=== PATIENT | female | born 1970 | race African-American/Black ===

== ENCOUNTER 2019-01-01 07:44 | Observation (INO) ==
[2019-01-01 07:49] VITALS: BMI 38.7
[2019-01-01] MEDS ORDERED: NS 1000 ML 1,000 ML IV ONE (08:29)
[2019-01-01] MEDS ORDERED: ZOFRAN INJ 4 MG VIAL IVP ONE (08:29)
[2019-01-01] MEDS ORDERED: PEPCID 20 MG IV PREMIX* 20 MG/50 ML BAG IV ONE (08:29)
--- NOTE | 2019-01-01 08:31 | ED.ABDFE ---
HPI Time Seen Time Seen by Provider: 01/01/19 08:05 PCP Primary Care Physician: JESSI EASON . FUNDING ANALYST HPI Comment HPI Comment: PATIENT IS 49YR OLD FEMALE WITH HISTORY OF CHRONIC CONSTIPATION IS IN ED WITH INCREASING CRAMPING AND SHARP ABDOMINAL PAIN TIMES ONE DAY. PAIN IS SHARP EPIGASTRIC RADIATING TO LOWER ABDOMEN ASSOCIATED WITH NAUSEA AND VOMITING. NO DYSURIA OR FEVER. Complaint Doctors Chief Complaint Comments: ABDOMINAL PAIN, NAUSEA AND VOMITING TIMES ONE DAY. Chief Complaint:: PT C/O EPIGASTRIC PAIN AND N/V ,,BR Self Treatment fo Chief Complaint: PT HAS AN APPT WITH BARRY SMALLS ON TUESDAY, BR Reviewed Nurses Notes Review: Yes Source History Provided: Patient Mode of arrival Mode of Arrival: Ambulatory Timing Onset of Chief Complaint: 12/31/18 Came on: Suddenly Duration Since Onset: Constant Duration: Hours Location Location: Diffuse Severity Severity: Severe Quality Quality: Cramping, Sharp and Generalized Modifying factors Worsening Factors: Exertion Improving Factors: Lying Still Associated signs and symptoms Associated Signs and Symptoms: Nausea and Vomiting Other history Other History: HISTORY CONSTIPATION. PMH PMH Past Medical History: Yes Past Medical History: Hypertension Past Surgical History: Yes Surgical History: Hysterectomy Family History History of Family Medical Conditions: Yes Family Medical History: Diabetes Mellitus Social History Does patient currently use any type of tobacco product: No Have you used tobacco products in the last 12 months: No Type of Tobacco Use: None Does any household member use tobacco: No Alcohol Use: None Do you use any recreational Drugs:: No Lives With: Family Lives Where: Home infectious screening In the last 2 months have you had wt loss of >10#?: NO Have you had fever, night sweats or hemotysis?: No Have you traveled outside the country in the last 6 months?: No Isolation: Standard ROS Review of Systems Constitutional: See HPI, Weakness and Fatigue; negative Fever Eyes: No Symptoms Reported and See HPI; negative Eye Pain, Tearing and Discharge ENTM: No Symptoms Reported and See HPI; negative Ear Pain, Nose Discharge, Nose Congestion and Throat Pain Respiratoy: No Symptoms Reported and See HPI; negative Productive Cough, Short of Breath and Wheezing Cardiovascular: No Symptoms Reported and See HPI; negative Chest Pain, Edema and Palpitations Gastrointestinal/Abdominal: See HPI, Abdominal Pain, Nausea and Vomiting Genitourinary: No Symptoms Reported; negative Dysuria, Frequency and Hematuria Neurological: See HPI and Weakness; negative Headache and Dizziness Musculoskeletal: No Symptoms Reported and See HPI; negative Back Pain and Muscle Pain Integumentary: No Symptoms Reported and See HPI; negative Change in Color and Dryness Hematologic/Lymphatic: No Symptoms Reported and See HPI; negative Easy Bruising, Swollen Glands and Lymphadenopathy Endocrine: No Symptoms Reported and See HPI; negative Increased Thirst, Increased Urine and Decreased Appetite Psychiatric: No Symptoms Reported and See HPI All Other Systems: Reviewed and Negative PE Vital Signs Vitals: Temperature 98.4 F Pulse Rate [Right Radial] 79 Pulse Rate 99 Respiratory Rate 20 Blood Pressure [Left Arm] 96/59 Blood Pressure [Right Arm] 109/64 Blood Pressure 162/82 O2 Sat by Pulse Oximetry 96 General Limitations: No Limitations General Appearance: Alert and In No Apparent Distress Head Head Exam: Normal Inspection, Atraumatic and Normocephalic Eyes Eye exam: Normal Appearance, PERRL and EOMI; negative Scleral Icterus and Conjunctival Injection ENT ENT Exam: Normal Exam, Normal Oropharynx, Normal External Ear Exam and TM's Normal Bilaterally Neck Neck Exam: Normal Inspection and Trachea Midline; negative Tenderness and Meningismus Chest Chest Inspection: Normal Inspection and Symmetric Chest Wall Rise; negative Tenderness Respiratory Respiratory Exam: Normal Lung Sounds Bilat; negative Accessory Muscle Use, Chest Wall Tenderness and Respiratory Distress Respiratory Exam: Bilateral: Clear to Auscultation Cardiovascular Cardiovascular Exam: Regular Rate, Normal Rhythm and Normal Heart Sounds; negative Systolic Murmur and Diastolic Murmur Abdominal Exam Abdominal Exam: Normal Inspection, Normal Bowel Sounds, Soft and Tenderness Abdominal Tenderness: Diffuse and Moderate Rectal Rectal Exam: Deferred Back Back Exam: Normal Inspection; negative Tenderness, Paraspinal Tenderness and Vertebral Tenderness Extremeties Extremities Exam: Normal Inspection, Tenderness and Normal Capillary Refill; negative Edema, Joint Swelling and Calf Tenderness External Exam: Female: Deferred : Speculum Exam (Female): Deferred : Bimanual Exam (female): Deferred Neurologic Neurological Exam: Alert, Oriented X3 and CN II-XII Intact; negative Motor Sensory Deficit Psychiatric Psychiatric Exam: Normal Affect and Normal Mood Skin Skin Exam: Dry MDM Differential Diagnosis Differential Diagnosis- Considerations may include:: Bowel Obstruction, Cholcystitis, Cholelethiasis, Constipation, Diverticular disease, Gastritus/PUD, Gastroenteritis, Inflammatory BD, Ischemic Bowel, Pancreatitis, Urinary tract infection and Urolithiasis COURSE Treatment Treatment: SEE ORDERS. Consultation Consultation Comments: SURGERY CONSULT TO DR. JAMISON. HE IS HERE IN ED TO SEE PATIENT. WILL HAVE MEDICINE ADMIT PATIENT, HE WILL TAKE PATIENT TO OR FOR EGD. DR. RINCON CAREER SERVICES DIRECTOR WILL ADMIT PATIENT. HAVE DISCUSS PATIENT WITH BOTH DRNewton Education/Counseling Education/Counseling: Patient Educated On: Diagnosis ROR Labs Reviewed Laboratory Results Reviewed?: Yes Result Diagrams: 01/03/19 04:36 01/03/19 04:36 Laboratory: WBC 4.6 X10^3/uL (3.6-10.0) 01/03/19 04:36 RBC 3.58 X10^6/uL (3.5-5.4) 01/03/19 04:36 Hgb 11.1 g/dL (12.0-16.0) L 01/03/19 04:36 Hct 32.5 % (36.0-47.0) L 01/03/19 04:36 MCV 90.9 fL (80.0-100.0) 01/03/19 04:36 MCH 31.1 pg (27.0-34.0) 01/03/19 04:36 MCHC 34.2 g/dL (33.0-35.0) 01/03/19 04:36 RDW 14.6 % (11.6-16.5) 01/03/19 04:36 Plt Count 274 X10^3/uL (150.0-450.0) 01/03/19 04:36 MPV 7.4 fL (7.4-11.0) 01/03/19 04:36 Neut % (Auto) 50.8 % (42.0-75.0) 01/03/19 04:36 Lymph % (Auto) 34.3 % (21.0-51.0) 01/03/19 04:36 [place] % (Auto) 10.5 % (0.0-13.0) 01/03/19 04:36 Eos % (Auto) 3.9 % (0.9-2.9) H 01/03/19 04:36 Baso % (Auto) 0.5 % (0.2-1.0) 01/03/19 04:36 Neut # (Auto) 2.3 x10^3/uL (2.2-4.8) 01/03/19 04:36 Lymph # (Auto) 1.6 X10^3/uL (1.3-2.9) 01/03/19 04:36 [place] # (Auto) 0.5 x10^3/uL (0.3-0.8) 01/03/19 04:36 Eos # (Auto) 0.2 x10^3/uL (0.0-0.2) 01/03/19 04:36 Baso # (Auto) 0.0 X10^3/uL (0.0-0.1) 01/03/19 04:36 Absolute Nucleated RBC 0.0 /100WBC 01/03/19 04:36 Sodium 143 mmol/L (136-145) 01/03/19 04:36 Corrected Sodium TNP 01/03/19 04:36 Potassium 3.6 mmol/L (3.5-5.1) 01/03/19 04:36 Chloride 107 mmol/L (98-107) 01/03/19 04:36 Carbon Dioxide 29.1 mmol/L (21-32) 01/03/19 04:36 BUN 13 mg/dL (7-18) 01/03/19 04:36 Creatinine 0.73 mg/dL (0.55-1.02) 01/03/19 04:36 Est GFR (MDRD) Af Amer > 60 (>60) 01/03/19 04:36 Est GFR (MDRD) Non-Af > 60 (>60) 01/03/19 04:36 Glucose 99 mg/dL (65-99) 01/03/19 04:36 Calcium 8.6 mg/dL (8.5-10.1) 01/03/19 04:36 Corrected Calcium 9.5 mg/dL (8.5-10.1) 01/03/19 04:36 Magnesium 2.0 mg/dL (1.7-2.9) 01/03/19 04:36 Total Bilirubin 0.20 mg/dL (0.2-1.0) 01/03/19 04:36 AST 21 Units/L (15-37) 01/03/19 04:36 ALT 13 Units/L (12-78) 01/03/19 04:36 Alkaline Phosphatase 67 Units/L (46-116) 01/03/19 04:36 Creatine Kinase 118 Units/L (26-192) 01/01/19 15:53 CK-MB (CK-2) 1.3 ng/mL (0-4.0) 01/01/19 15:53 CK/CKMB % Calc 1.1 % (<4) 01/01/19 15:53 Troponin I < 0.02 ng/mL (0-1.5) 01/01/19 15:53 Total Protein 6.8 g/dL (6.4-8.2) 01/03/19 04:36 Albumin 2.9 g/dL (3.4-5.0) L 01/03/19 04:36 Globulin 3.9 g/dL (2.5-4.5) 01/03/19 04:36 Albumin/Globulin Ratio 0.7 Ratio (1.1-2.1) L 01/03/19 04:36 Amylase 51 Units/L (25-115) 01/01/19 10:13 Lipase 68 Units/L (73-393) L 01/01/19 10:13 Specimen Type Clean catch urine 01/01/19 08:36 Urine Color Dark yellow (YELLOW) 01/01/19 08:36 Urine Appearance Hazy (CLEAR) 01/01/19 08:36 Urine pH 7.0 (5.0 - 8.0) 01/01/19 08:36 Ur Specific [place] 1.010 (1.000-1.030) 01/01/19 08:36 Urine Protein Negative (NEGATIVE) 01/01/19 08:36 Urine Glucose (UA) Negative (NEGATIVE) 01/01/19 08:36 Urine Ketones Negative (NEGATIVE) 01/01/19 08:36 Urine Occult Blood Negative (NEGATIVE) 01/01/19 08:36 Urine Nitrite Negative (NEGATIVE) 01/01/19 08:36 Urine Bilirubin Negative (NEGATIVE) 01/01/19 08:36 Urine Urobilinogen 2+ (NORMAL) 01/01/19 08:36 Ur Leukocyte Esterase 2+ (NEGATIVE) 01/01/19 08:36 Urine RBC None seen /HPF (NONE SEEN) 01/01/19 08:36 Urine WBC 3-5 /HPF (NONE SEEN) 01/01/19 08:36 Ur Squamous Epith Cells Moderate /HPF (NEGATIVE) 01/01/19 08:36 Urine Bacteria Trace /HPF (NEGATIVE) 01/01/19 08:36 Urine Mucus Few /HPF (NEGATIVE) 01/01/19 08:36 Ur Culture Indicated? No/not indicated 01/01/19 08:36 Tissue Pathology To follow 01/01/19 16:16 XRAY XRAY Interpreted by: Radiologist XRAY Findings: REPORT ON RECORD NOTED AND DISCUSS WITH PATIENT. Opioid Opioid Risk Tool Age (González box if 16-45): Yes Total: 1 Total Score Risk Category: Low Risk Copyright: Andrae GIBSON predicting aberrant behaviors Diagnosis Discharge Problem: Enteritis, IBD (inflammatory bowel disease) Abdominal pain Qualifiers: Abdominal location: epigastric Qualified Code(s): R10.13 - Epigastric pain Instructions Instructions: Constipation, Adult, [id number] Food Choices to Help Relieve Diarrhea, Adult Nausea and Vomiting, Adult, [id number] Abdominal Pain, Adult, [id number] Forms: Patient Portal
[2019-01-01 08:45] LABS: BILIRUBIN,URINE NEGATIVE (NEGATIVE); BLOOD/HEMOGLOBIN,URINE NEGATIVE (NEGATIVE); GLUCOSE, URINE NEGATIVE (NEGATIVE); KETONES,URINE NEGATIVE (NEGATIVE); LEUKOCYTE ESTERASE ,URINE 2+ (NEGATIVE); NITRITES,URINE NEGATIVE (NEGATIVE); PROTEIN,URINE NEGATIVE (NEGATIVE); UROBILINOGEN,URINE 2+ (NORMAL)
[2019-01-01 08:49] LABS: APPEARANCE,URINE HAZY (CLEAR); COLOR,URINE DARK YELLOW (YELLOW)
[2019-01-01 08:53] LABS: BACTERIA,URINE TRACE /HPF (NEGATIVE); MUCUS,URINE FEW /HPF (NEGATIVE); RBC,URINE NONE SEEN /HPF (NONE SEEN); SQUAMOUS EPITHELIAL CELL,UR MODERATE /HPF (NEGATIVE)
[2019-01-01] MEDS ORDERED: PHENERGAN INJ 25 MG IM ONE ×2 (08:56→09:07)
[2019-01-01] MEDS ORDERED: PEPCID 20 MG IV PREMIX* 20 MG/50 ML BAG ONE (10:13)
[2019-01-01] MEDS ORDERED: NS 1000 ML 1,000 ML ONE (10:13)
[2019-01-01 10:37] LABS: ALANINE AMINOTRANSFERASE 19 Units/L (12-78); ALBUMIN 3.7 g/dL (3.4-5.0); ALKALINE PHOSPHATASE 78 Units/L (46-116); AMYLASE 51 Units/L (25-115); ASPARTATE AMINO TRANSFERASE 30 Units/L (15-37); BLOOD UREA NITROGEN 18 mg/dL (7-18); CALCIUM 9.5 mg/dL (8.5-10.1); CARBON DIOXIDE 29.4 mmol/L (21-32); CHLORIDE 103 mmol/L (98-107); CREATININE 0.78 mg/dL (0.55-1.02); LIPASE 68 Units/L (73-393); SODIUM 141 mmol/L (136-145); TOTAL PROTEIN 8.4 g/dL (6.4-8.2); eGFR NON BLACK RACES > 60 (>60)
[2019-01-01 10:39] LABS: BASOPHILS # (AUTO) 0.1 X10^3/uL (0.0-0.1); BASOPHILS % (AUTO) 0.7 % (0.2-1.0); EOSINOPHILS % (AUTO) 0.2 % (0.9-2.9); HEMATOCRIT 41.2 % (36.0-47.0); HEMOGLOBIN 13.5 g/dL (12.0-16.0); LYMPHOCYTES # (AUTO) 1.6 X10^3/uL (1.3-2.9); LYMPHOCYTES % (AUTO) 16.3 % (21.0-51.0); MEAN CORPUSCULAR HEMOGLOBIN 29.7 pg (27.0-34.0); MEAN CORPUSCULAR HGB CONC 32.7 g/dL (33.0-35.0); MEAN CORPUSCULAR VOLUME 90.8 fL (80.0-100.0); MEAN PLATELET VOLUME 7.8 fL (7.4-11.0); MONOCYTES # (AUTO) 0.5 x10^3/uL (0.3-0.8); MONOCYTES % (AUTO) 4.8 % (0.0-13.0); NEUTROPHILS # (AUTO) 7.9 x10^3/uL (2.2-4.8); PLATELET COUNT 211 X10^3/uL (150.0-450.0); RED BLOOD COUNT 4.54 X10^6/uL (3.5-5.4); RED CELL DISTRIBUTION WIDTH 14.1 % (11.6-16.5); WHITE BLOOD COUNT 10.1 X10^3/uL (3.6-10.0)
[2019-01-01] MEDS ORDERED: MORPHINE SULFATE INJ 4 MG IVP ONE (10:41)
--- NOTE | 2019-01-01 12:58 | CT ---
HISTORY: Abdominal and epigastric pain Study: CT abdomen and pelvis with contrast Comparison: July 23, 2014 Technique: Multiple axial images of the abdomen and pelvis were obtained from the lung bases to the pubic symphysis with the administration of IV contrast. Findings: Subsegmental atelectasis and/or scarring are seen within the visualized lungs. Subcentimeter foci decreased attenuation within the liver are too small to accurately characterize. The spleen, adrenals, and left kidney are unremarkable in appearance. A subcentimeter low-attenuation lesion within the right kidney is too small to accurately characterize. No CT evidence of hydronephrosis is identified. A subcentimeter focus of decreased attenuation is again seen within the tail of the pancreas and does not appear to have significantly changed since prior exam. Images demonstrate moderate wall thickening with associated luminal narrowing involving a few loops of bowel within the central and left [place] abdomen and pelvis. Adjacent mesenteric fat stranding and a small amount of fluid are noted as well. Similar findings were demonstrated on prior exam performed on July 23, 2014. These findings are nonspecific but as previously stated may reflect infectious enteritis or inflammatory bowel disease however bowel ischemia cannot entirely be excluded. Recommend clinical correlation and surgical consultation for further evaluation. The urinary bladder is grossly unremarkable. IMPRESSION: Moderately thickened loops of bowel with adjacent inflammatory change and fluid as discussed above. Other findings as noted above. Reported By:
--- NOTE | 2019-01-01 15:41 | US ---
Right Upper Quadrant Sonogram Indication:epigastric pain Comparison: CT performed on same day Technique: Multiple miner scale and color flow Doppler images of the right upper quadrant were obtained. Findings: The liver is normal in echotexture and size. No focal intraparenchymal mass or intrahepatic biliary ductal dilatation can be observed. The gallbladder fails to demonstrate evidence for cholelithiasis or layering sludge.No pericholecystic fluid or gallbladder wall thickening can be observed. The common bile duct is unremarkable measuring 1 mm. The right kidney appears normal in size without focal parenchymal mass or nephrolithiasis. The right kidney measurers 8.1 cm. No hydronephrosis or perirenal fluid can be observed. The pancreatic head and body are unremarkable. There is a small amount perihepatic free fluid. IMPRESSION: 1. Aside for a small amount of perihepatic free fluid no sonographic abnormality within the right upper quadrant. Reported By:
[2019-01-01] MEDS ORDERED: MORPHINE SULFATE INJ 2 MG INJ IVP PRN (15:42)
[2019-01-01] MEDS ORDERED: ZOFRAN INJ 4 MG VIAL IVP PRN (15:42)
[2019-01-01] MEDS ORDERED: PEPCID 20 MG IV PREMIX* 20 MG/50 ML BAG IV PRN (15:42)
[2019-01-01] MEDS ORDERED: LR 1000 ML IV 1,000 ML ONE (16:00)
[2019-01-01 16:30] LABS: CKMB % 1.1 % (<4); CREATINE KINASE 118 Units/L (26-192); CREATINE KINASE MB 1.3 ng/mL (0-4.0); TROPONIN I < 0.02 ng/mL (0-1.5)
--- NOTE | 2019-01-01 16:31 | OR.GENERIC ---
Post-Op Note Generic - Post-Op Note Operative Report: EGD with Bx was done . finding : moderate gastritis involving the Antrum and fundus . small hiatal hernia with refflux esophagitis grade l and ll Bx 's were obtained . will keep on Protonix and schedule for biliary scan in Am .
[2019-01-01] MEDS: NS 1000 ML 1,000 ML IV SCH (17:10)
[2019-01-01] MEDS: D5 1/2 NS 1000 ML 1,000 ML IV SCH (17:11)
[2019-01-01] MEDS: FLAGYL IV PREMIX 500 MG BAG 500 MG/100 ML BAG IV SCH (20:37)
[2019-01-01] MEDS: ANUCORT-HC SUPP PR SCH (20:37)
[2019-01-01] MEDS: CIPRO IV 400 MG PREMIX* 400 MG/200 ML IV.SOLN. IV SCH (22:18)
[2019-01-02] MEDS: D5 1/2 NS 1000 ML 1,000 ML IV SCH ×5 (01:21→23:53)
[2019-01-02] MEDS: FLAGYL IV PREMIX 500 MG BAG 500 MG/100 ML BAG IV SCH ×4 (02:08→20:28)
[2019-01-02] MEDS: NS 1000 ML 1,000 ML IV SCH (02:19)
[2019-01-02 06:11] LABS: BASOPHILS % (AUTO) 0.6 % (0.2-1.0); EOSINOPHILS # (AUTO) 0.1 x10^3/uL (0.0-0.2); EOSINOPHILS % (AUTO) 2.5 % (0.9-2.9); HEMATOCRIT 32.3 % (36.0-47.0); LYMPHOCYTES # (AUTO) 1.7 X10^3/uL (1.3-2.9); MEAN CORPUSCULAR HEMOGLOBIN 30.7 pg (27.0-34.0); MEAN CORPUSCULAR HGB CONC 34.2 g/dL (33.0-35.0); MEAN CORPUSCULAR VOLUME 89.7 fL (80.0-100.0); MEAN PLATELET VOLUME 6.9 fL (7.4-11.0); MONOCYTES # (AUTO) 0.6 x10^3/uL (0.3-0.8); MONOCYTES % (AUTO) 9.8 % (0.0-13.0); NEUTROPHILS # (AUTO) 3.3 x10^3/uL (2.2-4.8); NEUTROPHILS % (AUTO) 57.1 % (42.0-75.0); PLATELET COUNT 275 X10^3/uL (150.0-450.0); RED CELL DISTRIBUTION WIDTH 14.3 % (11.6-16.5); WHITE BLOOD COUNT 5.7 X10^3/uL (3.6-10.0)
[2019-01-02 06:24] LABS: ALANINE AMINOTRANSFERASE 12 Units/L (12-78); ALBUMIN 2.9 g/dL (3.4-5.0); ALKALINE PHOSPHATASE 58 Units/L (46-116); ASPARTATE AMINO TRANSFERASE 24 Units/L (15-37); BLOOD UREA NITROGEN 10 mg/dL (7-18); CALCIUM 8.6 mg/dL (8.5-10.1); CARBON DIOXIDE 26.7 mmol/L (21-32); CHLORIDE 105 mmol/L (98-107); COR CA(FOR HYPOALB) 9.5 mg/dL (8.5-10.1); COR NA(FOR HYPERGLY) 142 mmol/L (136-145); SODIUM 142 mmol/L (136-145); TOTAL PROTEIN 6.8 g/dL (6.4-8.2); eGFR NON BLACK RACES > 60 (>60)
[2019-01-02] MEDS ORDERED: POTASSIUM CHL 40 MEQ/NS 0.45% 500 ML IV PRN (06:37)
[2019-01-02] MEDS ORDERED: KLOR-CON PO PRN (06:37)
[2019-01-02] MEDS ORDERED: POTASSIUM CHL 60 MEQ/NS 0.45% 500 ML IV PRN (06:37)
[2019-01-02] MEDS ORDERED: MICRO K EXTEN CAP 10 MEQ PO PRN (06:37)
[2019-01-02] MEDS ORDERED: K-RIDER 10 MEQ/NS 100 ML 10 MEQ/100 ML BAG IV PRN (06:37)
[2019-01-02] MEDS ORDERED: POTASSIUM CHLORIDE LIQ 20 MEQ UDC PO PRN (06:37)
--- NOTE | 2019-01-02 06:45 | RAD ---
HISTORY: Follow-up small bowel obstruction Study: Flat and upright abdomen, PA chest Comparison: CT abdomen pelvis 01/01/2019 Findings: The heart is enlarged. No congestive heart failure is noted. The lung green are clear. The abdominal gas pattern is nonspecific and nonobstructive. There is contrast within the colon from the patient's prior CT this precludes complete small bowel obstruction. No pneumoperitoneum is identified. No abnormal masses or abnormal calcifications are identified. The regional skeleton is intact. IMPRESSION: Mild cardiomegaly without congestive heart failure Nonspecific nonobstructive bowel gas pattern. Reported By:
[2019-01-02] MEDS ORDERED: PHARMACY CONSULT - DOSE _____ XX SCH (08:00)
[2019-01-02] MEDS ORDERED: PROTONIX TAB 40 MG ONE (08:53)
[2019-01-02] MEDS ORDERED: PROTONIX INJ 40 MG VIAL IVP SCH (09:00)
[2019-01-02] MEDS: ANUCORT-HC SUPP PR SCH ×2 (09:23→20:28)
[2019-01-02] MEDS: PROTONIX TAB 40 MG PO SCH (09:23)
[2019-01-02] MEDS: CIPRO IV 400 MG PREMIX* 400 MG/200 ML IV.SOLN. IV SCH ×2 (09:23→21:24)
[2019-01-02] MEDS: ZESTORETIC 20/25 MG PO SCH (09:24)
[2019-01-02] MEDS: K-DUR TAB 20 MEQ PO PRN ×2 (09:29→13:30)
[2019-01-02] MEDS: MAGNESIUM SULFATE 1 GRAM/100 mL PREMIX 1 GM/100 ML BAG IV PRN ×2 (09:30→11:43)
[2019-01-02] MEDS ORDERED: CITROMA PO ONE (09:36)
[2019-01-02] MEDS ORDERED: TYLENOL 325 MG TAB PO ONE (11:02)
[2019-01-02] MEDS: TYLENOL 325 MG TAB PO PRN (11:12)
--- NOTE | 2019-01-02 16:30 | DR.PROGNOT ---
Hospital Progress Notes - Progress Note for Day of: Progress Note Date: 01/02/19 - Chief Complaint Chief Complaint: less abdominal pain today, no nausea or vomiting . GB US was read as normal with small amount of aydee hepatic fluid . - Past Medical Family Social History Past Med/Fam/Surg Hx: No changes since H&P Allergies: Allergies No Known Drug Allergies Allergy (Verified 01/01/19 08:28) - Review Of Systems ROS: No change since H&P - Vital Signs Vital Signs: Temperature 98.3 F Pulse Rate [Right Radial] 79 Pulse Rate 99 Respiratory Rate 20 Blood Pressure [Left Arm] 112/65 Blood Pressure [Right Arm] 109/64 Blood Pressure 162/82 O2 Sat by Pulse Oximetry 97 - Physical Exam Oriented: Normal Eyes: Normal Ear: Normal Nose: Normal Throat: Normal Respiratory: Normal Cardiovascular: Normal GI:Auscultation: Normal GI:Palpation: Normal GI: Tenderness: Diffuse (soft , obese abdomen with generalized tenderness , BS+ ) Speech Pattern: Clear, Appropriate - Laboratory and Diagnostics Result Diagrams: 01/02/19 05:56 01/02/19 16:07 Labs: Laboratory WBC 5.7 X10^3/uL (3.6-10.0) 01/02/19 05:56 RBC 3.60 X10^6/uL (3.5-5.4) 01/02/19 05:56 Hgb 11.0 g/dL (12.0-16.0) L D 01/02/19 05:56 Hct 32.3 % (36.0-47.0) L 01/02/19 05:56 MCV 89.7 fL (80.0-100.0) 01/02/19 05:56 MCH 30.7 pg (27.0-34.0) 01/02/19 05:56 MCHC 34.2 g/dL (33.0-35.0) 01/02/19 05:56 RDW 14.3 % (11.6-16.5) 01/02/19 05:56 Plt Count 275 X10^3/uL (150.0-450.0) 01/02/19 05:56 MPV 6.9 fL (7.4-11.0) L 01/02/19 05:56 Neut % (Auto) 57.1 % (42.0-75.0) 01/02/19 05:56 Lymph % (Auto) 30.0 % (21.0-51.0) 01/02/19 05:56 [place] % (Auto) 9.8 % (0.0-13.0) 01/02/19 05:56 Eos % (Auto) 2.5 % (0.9-2.9) 01/02/19 05:56 Baso % (Auto) 0.6 % (0.2-1.0) 01/02/19 05:56 Neut # (Auto) 3.3 x10^3/uL (2.2-4.8) 01/02/19 05:56 Lymph # (Auto) 1.7 X10^3/uL (1.3-2.9) 01/02/19 05:56 [place] # (Auto) 0.6 x10^3/uL (0.3-0.8) 01/02/19 05:56 Eos # (Auto) 0.1 x10^3/uL (0.0-0.2) 01/02/19 05:56 Baso # (Auto) 0.0 X10^3/uL (0.0-0.1) 01/02/19 05:56 Absolute Nucleated RBC 0.0 /100WBC 01/02/19 05:56 Sodium 142 mmol/L (136-145) 01/02/19 05:56 Corrected Sodium 142 mmol/L (136-145) 01/02/19 05:56 Potassium 3.8 mmol/L (3.5-5.1) 01/02/19 16:07 Chloride 105 mmol/L (98-107) 01/02/19 05:56 Carbon Dioxide 26.7 mmol/L (21-32) 01/02/19 05:56 BUN 10 mg/dL (7-18) 01/02/19 05:56 Creatinine 0.70 mg/dL (0.55-1.02) 01/02/19 05:56 Est GFR (MDRD) Af Amer > 60 (>60) 01/02/19 05:56 Est GFR (MDRD) Non-Af > 60 (>60) 01/02/19 05:56 Glucose 115 mg/dL (65-99) H 01/02/19 05:56 Calcium 8.6 mg/dL (8.5-10.1) 01/02/19 05:56 Corrected Calcium 9.5 mg/dL (8.5-10.1) 01/02/19 05:56 Magnesium 1.8 mg/dL (1.7-2.9) 01/02/19 05:56 Total Bilirubin 0.40 mg/dL (0.2-1.0) 01/02/19 05:56 AST 24 Units/L (15-37) 01/02/19 05:56 ALT 12 Units/L (12-78) 01/02/19 05:56 Alkaline Phosphatase 58 Units/L (46-116) 01/02/19 05:56 Creatine Kinase 118 Units/L (26-192) 01/01/19 15:53 CK-MB (CK-2) 1.3 ng/mL (0-4.0) 01/01/19 15:53 CK/CKMB % Calc 1.1 % (<4) 01/01/19 15:53 Troponin I < 0.02 ng/mL (0-1.5) 01/01/19 15:53 Total Protein 6.8 g/dL (6.4-8.2) 01/02/19 05:56 Albumin 2.9 g/dL (3.4-5.0) L 01/02/19 05:56 Globulin 3.9 g/dL (2.5-4.5) 01/02/19 05:56 Albumin/Globulin Ratio 0.7 Ratio (1.1-2.1) L 01/02/19 05:56 Amylase 51 Units/L (25-115) 01/01/19 10:13 Lipase 68 Units/L (73-393) L 01/01/19 10:13 Specimen Type Clean catch urine 01/01/19 08:36 Urine Color Dark yellow (YELLOW) 01/01/19 08:36 Urine Appearance Hazy (CLEAR) 01/01/19 08:36 Urine pH 7.0 (5.0 - 8.0) 01/01/19 08:36 Ur Specific [place] 1.010 (1.000-1.030) 01/01/19 08:36 Urine Protein Negative (NEGATIVE) 01/01/19 08:36 Urine Glucose (UA) Negative (NEGATIVE) 01/01/19 08:36 Urine Ketones Negative (NEGATIVE) 01/01/19 08:36 Urine Occult Blood Negative (NEGATIVE) 01/01/19 08:36 Urine Nitrite Negative (NEGATIVE) 01/01/19 08:36 Urine Bilirubin Negative (NEGATIVE) 01/01/19 08:36 Urine Urobilinogen 2+ (NORMAL) 01/01/19 08:36 Ur Leukocyte Esterase 2+ (NEGATIVE) 01/01/19 08:36 Urine RBC None seen /HPF (NONE SEEN) 01/01/19 08:36 Urine WBC 3-5 /HPF (NONE SEEN) 01/01/19 08:36 Ur Squamous Epith Cells Moderate /HPF (NEGATIVE) 01/01/19 08:36 Urine Bacteria Trace /HPF (NEGATIVE) 01/01/19 08:36 Urine Mucus Few /HPF (NEGATIVE) 01/01/19 08:36 Ur Culture Indicated? No/not indicated 01/01/19 08:36 Tissue Pathology To follow 01/01/19 16:16 - Assessment and Plan 1: acute abdominal pain ,. IBD , . cholecystitis . for Biliary scan in am
[2019-01-02] MEDS: COLACE CAP 100 MG PO SCH (20:28)
[2019-01-03] MEDS: D5 1/2 NS 1000 ML 1,000 ML IV SCH ×2 (02:30→08:54)
[2019-01-03] MEDS: FLAGYL IV PREMIX 500 MG BAG 500 MG/100 ML BAG IV SCH ×2 (02:37→08:57)
[2019-01-03] MEDS: TYLENOL 325 MG TAB PO PRN (04:36)
[2019-01-03 05:29] LABS: BASOPHILS % (AUTO) 0.5 % (0.2-1.0); EOSINOPHILS # (AUTO) 0.2 x10^3/uL (0.0-0.2); EOSINOPHILS % (AUTO) 3.9 % (0.9-2.9); HEMATOCRIT 32.5 % (36.0-47.0); HEMOGLOBIN 11.1 g/dL (12.0-16.0); LYMPHOCYTES # (AUTO) 1.6 X10^3/uL (1.3-2.9); LYMPHOCYTES % (AUTO) 34.3 % (21.0-51.0); MEAN CORPUSCULAR HEMOGLOBIN 31.1 pg (27.0-34.0); MEAN CORPUSCULAR HGB CONC 34.2 g/dL (33.0-35.0); MEAN CORPUSCULAR VOLUME 90.9 fL (80.0-100.0); MEAN PLATELET VOLUME 7.4 fL (7.4-11.0); MONOCYTES # (AUTO) 0.5 x10^3/uL (0.3-0.8); MONOCYTES % (AUTO) 10.5 % (0.0-13.0); NEUTROPHILS # (AUTO) 2.3 x10^3/uL (2.2-4.8); NEUTROPHILS % (AUTO) 50.8 % (42.0-75.0); PLATELET COUNT 274 X10^3/uL (150.0-450.0); RED BLOOD COUNT 3.58 X10^6/uL (3.5-5.4); RED CELL DISTRIBUTION WIDTH 14.6 % (11.6-16.5); WHITE BLOOD COUNT 4.6 X10^3/uL (3.6-10.0)
[2019-01-03 05:38] LABS: ALANINE AMINOTRANSFERASE 13 Units/L (12-78); ALBUMIN 2.9 g/dL (3.4-5.0); ALKALINE PHOSPHATASE 67 Units/L (46-116); ASPARTATE AMINO TRANSFERASE 21 Units/L (15-37); BLOOD UREA NITROGEN 13 mg/dL (7-18); CALCIUM 8.6 mg/dL (8.5-10.1); CARBON DIOXIDE 29.1 mmol/L (21-32); CHLORIDE 107 mmol/L (98-107); COR CA(FOR HYPOALB) 9.5 mg/dL (8.5-10.1); CREATININE 0.73 mg/dL (0.55-1.02); SODIUM 143 mmol/L (136-145); TOTAL PROTEIN 6.8 g/dL (6.4-8.2); eGFR NON BLACK RACES > 60 (>60)
--- NOTE | 2019-01-03 06:11 | RAD ---
HISTORY: Fecal retention Study: Flat and upright abdomen, PA chest Comparison: 01/02/2019 Findings: The heart is enlarged. The thor are normal. The lung green are clear. No congestive heart failure is noted. The abdominal gas pattern is nonobstructive. No pneumoperitoneum is identified. There is moderate stool present in the ascending and transverse colon. No abnormal masses or abnormal calcifications are identified. IMPRESSION: Mild cardiomegaly without congestive heart failure Nonspecific, nonobstructive bowel gas pattern Moderate stool Reported By:
[2019-01-03] MEDS: CIPRO IV 400 MG PREMIX* 400 MG/200 ML IV.SOLN. IV SCH (08:46)
[2019-01-03] MEDS: ANUCORT-HC SUPP PR SCH (08:46)
[2019-01-03] MEDS: COLACE CAP 100 MG PO SCH (08:47)
[2019-01-03] MEDS: PROTONIX TAB 40 MG PO SCH (08:58)
[2019-01-03] MEDS: ZESTORETIC 20/25 MG PO SCH (08:58)
[2019-01-03 11:49] VITALS: BP 96/59
== END 2019-01-03 12:40 | disposition home or self-care (01) ==
LOC: ER 07:45 → MED/SURG 07:45
PROVIDERS: ADMIT Obstetrics & Gynecology Obstetrics; ATTEND Obstetrics & Gynecology Obstetrics
DX: I10 Essential (primary) hypertension; R94.31 Abnormal electrocardiogram [ECG] [EKG]; K59.09 Other constipation; K29.60 Other gastritis without bleeding; K81.9 Cholecystitis, unspecified; K21.9 Gastro-esophageal reflux disease without esophagitis; K44.9 Diaphragmatic hernia without obstruction or gangrene; R10.13 Epigastric pain
CPT/HCPCS: 36415; 74022; 74177; 76705; 80053; 81001; 82150; 82550; 82553; 83690; 83735; 84132; 84484; 85025; 93005; 96365; 96367; 96372; 96374; 96375; 99284; A4222; A9537; S0028; S0030; G0378; J0744; J2270; J2550; J3475; J3490; J7030; J7120; S5010